=== PATIENT | female | born 1950 | race Caucasian/White ===

== ENCOUNTER 2024-09-22 11:29 | Outpatient (CLI) | payer MEDICARE, SELFPAY ==
--- NOTE | ~2024-09-22 | MR_ITS ---
EXAMINATION: MR thoracic spine wo con DATE: 09/22/2024 12:16 INDICATION: Osteoporosis with current pathologic fracture TECHNIQUE: Magnetic resonance imaging (MRI) of the thoracic spine was performed without intravenous c ontrast. Sagittal localizer T1-weighted FSE of the cervicothoracic spine was obtained. Thoracic spine sequences included sagittal T2-weighted FSE, sagittal T1-weighted SE, Sagittal T2-weighted FS FSE, a nd axial T2-weighted FSE. COMPARISON: None FINDINGS: Metallic magnetic field artifact at the cervical spine on the voucher examiner localizer imaging consistent with likely interval plate-screw fixation for anterior spinal fusion at C4-C6. Mild midthoracic kyphosis with several compression fractures. These include a T5 compression fracture with one third anterior v ertebral body height loss, T8 compression fracture with 60% anterior vertebral body height loss and a T9 superior endplate compression fracture with 20% central vertebral body height loss. There is lorene ow edema associated with each of these fractures suggesting these are acute or with acute progression . Globular region of low signal intensity within the T9 vertebral body and horizontally oriented viky on of low signal in the T8 vertebral body with linear dural tract extending along the right pedicle o f T8 and the left pedicle of T9 consistent with prior vertebroplasties. There is a region of decrease d T1 and increased T2 signal involving a significant portion of the anterior half of the T7 vertebral body centered around a small Schmorl's node along the inferior endplate and the signal change could represent reactive edema related to acute Schmorl's node along the underlying marrow replacing lesion cannot be absolutely excluded. Large T1 hyperintense and fat saturating hemangioma in the T11 verteb ral body. Moderate disc height loss at T11-T12. There is mild disc height loss at T9-T10. There is mi ld increase in central disc height associated with several of the compression fractures. Disc bulges resulting in mild central canal stenosis at C6-C7, T5-T6, T6-T7, T7-T8, T9-T10 and T11-T12. Additiona l mild disc bulges with only minimal central canal stenosis at T2-T3, T8-T9, T12-L1 through L2-L3. Th ere is severe multilevel thoracic facet osteoarthritis. There is mild to moderate thoracic neural fro m stenosis most prominent bilaterally at T5-T6 through T9-10. There is normal spinal cord signal. The conus terminates at L2. 1 cm T2 hyperintense right hepatic lobe cyst. Paravertebral soft tissues are unremarkable. IMPRESSION: 1. Increased T2 signal associated with likely recent T5 compression fracture as well as with compress ion fractures at T8 and T9 where there are also changes of prior vertebroplasty. 2. Prominent increased T2 signal and decreased T1 signal at the T7 vertebral body which could represe nt additional edema although is disproportionate to relatively small Schmorl's node along the inferio r endplate which suggests possibility of metastatic disease or other marrow replacing process. Correl ate with clinical history and any prior outside imaging for comparison and could also consider postco ntrast imaging. 3. Mild to moderate thoracic spondylosis. Reviewed, dictated and finalized at location A. IMPRESSION: 1. Increased T2 signal associated with likely recent T5 compression fracture as well as with compression fractures at T8 and T9 where there are also changes o f prior vertebroplasty. 2. Prominent increased T2 signal and decreased T1 signal at the T7 vertebral daniel dy which could represent additional edema although is disproportionate to relat ively small Schmorl's node along the inferior endplate which suggests possibili ty of metastatic disease or other marrow replacing process. Correlate with clin ical history and any prior outside imaging for comparison and could also consid er postcontrast imaging. 3. Mild to moderate thoracic spondylosis.
== END 2024-09-22 11:30 | disposition home or self-care (01) ==
PROVIDERS: PCP Nurse Practitioner Family; Visit Provider Nurse Practitioner Family
DX: M80.08XA Age-related osteoporosis with current pathological fracture, vertebra(e), initial encounter for fracture (principal); M47.894 Other spondylosis, thoracic region
CPT/HCPCS: 72146

== ENCOUNTER 2024-09-30 12:17 | Outpatient (CLI) | payer MEDICARE, SELFPAY ==
--- NOTE | ~2024-09-30 | MR_ITS ---
EXAMINATION: MR thoracic spine w con DATE: 09/30/2024 14:03 INDICATION: Osteoporosis with pathologic compression fractures in the thoracic spine. TECHNIQUE: Magnetic resonance imaging (MRI) of the thoracic spine was performed without and with 11 m L ProHance intravenous contrast. Sagittal localizer T1-weighted FSE of the cervicothoracic spine was obtained. Thoracic spine sequences included precontrast axial T1-weighted FSE and postcontrast axial and sagittal T1-weighted FSE. COMPARISON: MRI dated 09/22/2024 FINDINGS: Evaluation mildly limited by motion artifact. Again seen is a mild midthoracic kyphosis with some mar row enhancement associated with the previously detailed compression fractures at T5, T8 and T9 which by imaging and a right clinical history are relatively recent. As previous noted there has been prior vertebral plasties at T8 and T9. More clearly evident on the current study is a T7 compression fract ure without significant vertebral body height loss but with buckling along the inferior anterior wall of the vertebral body and surrounding marrow enhancement corresponding to the region of prominent in creased edema on the prior study. There is also enhancement associated with nondisplaced fractures of the left transverse processes of T2, T3, T4 and T5 which are present but not identified on the prior noncontrast imaging. Present but not identified on the prior study are nondisplaced fractures. Low s ignal intensity on the fat-saturated postcontrast images with increasedT1 signal on the skin care instructor localiz er image/oh with a hemangioma in the T11 vertebral body. No other abnormally enhancing bone lesions n ot associated with fracture to suggest metastatic disease. No abnormally enhancing lesions in the cor d. IMPRESSION: 1. Marrow enhancement associated with the previously noted compression fractures of T5, T8 and T9 as well as with additional fractures more clearly evident on the current study involving the anterior wa ll of the T7 vertebral body and at the left transverse processes of T2-T5. No abnormally enhancing daniel ne lesions not associated with fracture to suggest metastatic disease. Reviewed, dictated and finalized at location A. IMPRESSION: 1. Marrow enhancement associated with the previously noted compression fracture s of T5, T8 and T9 as well as with additional fractures more clearly evident on the current study involving the anterior wall of the T7 vertebral body and at the left transverse processes of T2-T5. No abnormally enhancing bone lesions no t associated with fracture to suggest metastatic disease.
== END 2024-09-30 12:18 | disposition home or self-care (01) ==
PROVIDERS: PCP Nurse Practitioner Family; Visit Provider Nurse Practitioner Family
DX: M80.08XA Age-related osteoporosis with current pathological fracture, vertebra(e), initial encounter for fracture (principal)
CPT/HCPCS: 72147; A9579